=== PATIENT | male | born 1975 | race Caucasian/White ===

== ENCOUNTER → 2017-12-14 | Outpatient (CLI) | payer OTHER ==
[2017-12-14 18:50] LABS: ALBUMIN 3.8 gm/dl (3.4-5.0); CALCIUM 7.2 mg/dl (8.5-10.1)
[2017-12-14 19:02] LABS: PHOSPHORUS 4.5 mg/dl (2.5-4.9)
== END | disposition home or self-care (01) ==
LOC: C.LAB 14:23
PROVIDERS: ATTEND Specialist
DX: E05.90 Thyrotoxicosis, unspecified without thyrotoxic crisis or storm (principal); E21.3 Hyperparathyroidism, unspecified

== ENCOUNTER → 2017-12-27 | Outpatient (CLI) | payer OTHER ==
[2017-12-27 15:07] LABS: ALBUMIN 3.9 gm/dl (3.4-5.0); CALCIUM 8.4 mg/dl (8.5-10.1)
[2017-12-27 15:10] LABS: PHOSPHORUS 4.7 mg/dl (2.5-4.9)
== END | disposition home or self-care (01) ==
LOC: C.LAB 11:52
PROVIDERS: ATTEND Internal Medicine Endocrinology, Diabetes & Metabolism
DX: E31.21 Multiple endocrine neoplasia [MEN] type I (principal); E21.3 Hyperparathyroidism, unspecified; N20.0 Calculus of kidney

== ENCOUNTER → 2018-05-23 | Outpatient (CLI) | payer OTHER | END | disposition home or self-care (01) | LOC: C.LAB 13:21 | PROVIDERS: ATTEND Specialist | DX: E21.3 Hyperparathyroidism, unspecified (principal) ==